=== PATIENT | female | born 1940 | race Caucasian/White ===

== ENCOUNTER 2020-12-03 14:08 | Inpatient (IN) | payer OTHER ==
[~2020-12-03] VITALS: Ht 154.9 cm; Wt 42.5 kg
[2020-12-03 15:09] LABS: Basophils # (auto) 0 10 ^3/uL (0-0.2); Basophils % (auto) 0.3 % (0.0-2.0); Eosinophils # (auto) 0 10 ^3/uL (0-0.8); Hematocrit 38.5 % (36.0-46.0); Hemoglobin 12.9 g/dL (12.2-16.2); Lymphocytes # (auto) 0.5 10 ^3/uL (0.4-5.4); Lymphocytes % (auto) 3.2 % (10.0-50.0); Mean Corpuscular Hemoglobin 31.1 pg (28.0-32.0); Mean Corpuscular Hgb Conc. 33.5 g/dL (32.0-36.0); Mean Corpuscular Volume 92.8 fL (80.0-100.0); Monocytes # (auto) 0.8 10 ^3/uL (0-1.3); Monocytes % (auto) 5.3 % (0.0-12.0); Neutrophils # (auto) 14.6 10 ^3/uL (1.6-8.6); Neutrophils % (auto) 91.2 % (37.0-80.0); Platelet Count (auto) 311 10^3/uL (140-450); Red Blood Cells 4.14 10^6/uL (4.0-5.20)
[2020-12-03 15:27] LABS: Albumin 3.2 g/dL (3.4-5.0); Anion Gap 11 (5-15); Blood Urea Nitrogen 35 mg/dL (7-18); Calcium 9.1 mg/dL (8.5-10.1); Carbon Dioxide 22 mmol/L (21-32); Chloride 104 mmol/L (98-107); Glucose 136 mg/dL (74-106); Magnesium 2.4 mg/dL (1.6-2.6); Potassium 3.8 mmol/L (3.5-5.1); Sodium 137 mmol/L (136-145)
[2020-12-03 15:33] LABS: Alanine Aminotransferase 15 U/L (13-56); Alkaline Phosphatase 61 U/L (45-117); Aspartate Aminotransferase 12 U/L (15-37); BUN/Creatinine Ratio 32.4; Bilirubin, Total 0.7 mg/dL (0.2-1.0); GFR African American 63 mL/min; GFR Non-African American 52 mL/min; Total Protein 7.5 g/dL (6.4-8.2)
[2020-12-03] MEDS ORDERED: PIPERACILLIN-TAZOB 3.375GM 100 ML IV ONE (15:45)
[2020-12-03 16:50] LABS: INR 1.17 (0.9-1.15); Partial Thromboplastin Time 31.9 sec (23.0-31.2)
[2020-12-03] MEDS ORDERED: NITROGLYCERIN 0.4 MG SL TAB SL PRN (17:15)
[2020-12-03] MEDS ORDERED: MORPHINE SULF INJ 2 MG/ML SYRINGE 1ML IV PRN (17:15)
[2020-12-03 17:19] LABS: Urine Bacteria NONE SEEN /hpf (None Seen); Urine Blood Negative /uL (Negative); Urine Mucus FEW (None Seen); Urine Specific Gravity 1.018 (1.001-1.035); Urine WBC 2 /hpf (0 - 5)
[2020-12-03] MEDS ORDERED: LACTATED RINGER'S 1,000 ML IV ONE (18:00)
[2020-12-03] MEDS ORDERED: ALBUTEROL SULF 2.5 MG/0.5ML(0.5%) NEB SOLN NEB PRN (19:30)
[2020-12-03] MEDS ORDERED: LACTULOSE 20Gm/30ML SOLN PO PRN ×2 (19:30)
[2020-12-03] MEDS ORDERED: levoFLOXacin 500MG 100 ML IV ONE (20:30)
[2020-12-03] MEDS: SODIUM CHLORIDE 0.9% 1,000 ML IV SCH (21:19)
[2020-12-03] MEDS: methylPREDNISolone SOD SUCC 40 MG/ML VL IV SCH (21:20)
[2020-12-03 22:00] VITALS: BP 121/77
[2020-12-03 22:02] VITALS: BP 144/76
[2020-12-03] MEDS ORDERED: ALEN70TA74 PO (22:48)
[2020-12-03] MEDS ORDERED: PRIM50TA27 PO (22:48)
[2020-12-03] MEDS ORDERED: QUET100T46 PO (22:48)
[2020-12-03] MEDS ORDERED: UMEC1AER IN (22:48)
[2020-12-03] MEDS ORDERED: AMIT100T2 PO (22:48)
[2020-12-03] MEDS ORDERED: HYDR-4902 PO (22:48)
[2020-12-04] VITALS (11 sets, daily range): BP systolic 111–154; BP diastolic 59–84
[2020-12-04] MEDS ORDERED: LITH150C6 PO (03:25)
[2020-12-04] MEDS: SODIUM CHLORIDE 0.9% 1,000 ML IV SCH ×2 (05:46→15:30)
[2020-12-04 06:28] LABS: Basophils # (auto) 0 10 ^3/uL (0-0.2); Eosinophils # (auto) 0 10 ^3/uL (0-0.8); Hematocrit 34.5 % (36.0-46.0); Hemoglobin 11.7 g/dL (12.2-16.2); Lymphocytes # (auto) 0.2 10 ^3/uL (0.4-5.4); Lymphocytes % (auto) 1.7 % (10.0-50.0); Mean Corpuscular Hgb Conc. 33.8 g/dL (32.0-36.0); Mean Corpuscular Volume 91.7 fL (80.0-100.0); Monocytes # (auto) 0.2 10 ^3/uL (0-1.3); Monocytes % (auto) 1.7 % (0.0-12.0); Neutrophils # (auto) 8.6 10 ^3/uL (1.6-8.6); Neutrophils % (auto) 96.6 % (37.0-80.0); Platelet Count (auto) 257 10^3/uL (140-450); Red Blood Cells 3.76 10^6/uL (4.0-5.20); Red Cell Distribution Width 13.8 % (11.8-14.3)
[2020-12-04 06:35] LABS: BUN/Creatinine Ratio 37.3; Calcium 8.6 mg/dL (8.5-10.1); Potassium 4.1 mmol/L (3.5-5.1)
[2020-12-04] MEDS: methylPREDNISolone SOD SUCC 40 MG/ML VL IV SCH ×2 (08:45→21:10)
[2020-12-04] MEDS: FAMOTIDINE 20 MG TAB PO SCH ×2 (10:00)
[2020-12-04] MEDS ORDERED: ENOXAPARIN SOD 40 MG/0.4 ML SYRINGE SC SCH (10:00)
[2020-12-04] MEDS: levoFLOXacin 250MG 100 ML IV SCH (10:09)
[2020-12-04] MEDS ORDERED: MORPHINE SULF INJ 2 MG/ML SYRINGE 1ML IV PRN (11:45)
[2020-12-04] MEDS ORDERED: HYDROcodone-ACET 5/325MG TAB PO PRN (11:45)
[2020-12-04] MEDS: MORPHINE SULF INJ 2 MG/ML SYRINGE 1ML IV PRN (12:25)
[2020-12-04] MEDS ORDERED: TRANEXAMIC ACID 20 ML ONE (13:22)
[2020-12-04] MEDS ORDERED: ROPIVACAINE 0.5% (5MG/ML) 20ML AMPULE IJ ONE (13:23)
[2020-12-04] MEDS ORDERED: VANCOMYCIN HCL 1000 MG VL ONE ×2 (13:24→14:00)
[2020-12-04] MEDS ORDERED: EPINEPHrine HCL 1 MG/1 ML AMP ONE (13:24)
[2020-12-04] MEDS ORDERED: BUPIVACAINE 0.5% P/F INJ 10 ML VIAL ONE (13:41)
[2020-12-04] MEDS ORDERED: GLYCOPYRROLATE 0.2 MG/ML 1ML VIAL ONE (13:42)
[2020-12-04] MEDS ORDERED: ONDANSETRON HCL 4 MG/2 ML VIAL ONE (13:42)
[2020-12-04] MEDS ORDERED: MIDAZOLAM HCL 1MG/1ML-2 ML VIAL ONE (13:42)
[2020-12-04] MEDS ORDERED: LIDOCAINE 2% (LOCAL ANESTH.) PF 5ml SDV ONE (13:42)
[2020-12-04] MEDS ORDERED: PROPOFOL 10 MG/ML 20 ML IV ONE (13:42)
[2020-12-04] MEDS ORDERED: fentaNYL CITRATE 100 MCG/2 ML VL ONE (13:42)
[2020-12-04] MEDS ORDERED: MORPHINE SULF(PF) 0.5MG/ML 10ML VIAL ONE (13:42)
[2020-12-04] MEDS ORDERED: ceFAZolin 1GM/50ML 50 ML IV ONE (14:00)
[2020-12-04] MEDS ORDERED: NALOXONE HCL 0.4 MG/ML VIAL IV PRN (16:15)
[2020-12-04] MEDS ORDERED: DexAMETHasone SOD PHOS 10MG/1ML VIAL INJ IV PRN (16:15)
[2020-12-04] MEDS ORDERED: LACTATED RINGER'S 1,000 ML IV SCH (16:15)
[2020-12-04] MEDS ORDERED: ONDANSETRON HCL 4 MG/2 ML VIAL IV PRN ×2 (16:15)
[2020-12-04] MEDS ORDERED: diphenhdrAMINE HCL 50 MG/1 ML VL IV PRN (16:15)
[2020-12-04] MEDS ORDERED: NALBUPHINE HCL 10 MG/1ml INJECTION SUBCUT ONE (16:15)
[2020-12-04] MEDS ORDERED: KETOROLAC TROMETH 15 mg/ml 1ML VL IV SCH (18:00)
[2020-12-04] MEDS: KETOROLAC TROMETH 30 MG/ML 1ML VIAL IV SCH (21:10)
[2020-12-04] MEDS: ceFAZolin 1GM/50ML 50 ML IV SCH (22:32)
[2020-12-05] VITALS (20 sets, daily range): BP systolic 102–145; BP diastolic 54–97
[2020-12-05] MEDS: KETOROLAC TROMETH 30 MG/ML 1ML VIAL IV SCH ×4 (03:32→21:38)
[2020-12-05 05:17] LABS: Basophils # (auto) 0 10 ^3/uL (0-0.2); Eosinophils # (auto) 0 10 ^3/uL (0-0.8); Hematocrit 31.6 % (36.0-46.0); Hemoglobin 10.6 g/dL (12.2-16.2); Lymphocytes # (auto) 0.2 10 ^3/uL (0.4-5.4); Lymphocytes % (auto) 2.3 % (10.0-50.0); Mean Corpuscular Hemoglobin 31.1 pg (28.0-32.0); Mean Corpuscular Hgb Conc. 33.6 g/dL (32.0-36.0); Mean Corpuscular Volume 92.8 fL (80.0-100.0); Monocytes # (auto) 0.4 10 ^3/uL (0-1.3); Monocytes % (auto) 3.9 % (0.0-12.0); Neutrophils # (auto) 9.1 10 ^3/uL (1.6-8.6); Neutrophils % (auto) 93.8 % (37.0-80.0); Platelet Count (auto) 261 10^3/uL (140-450); White Blood Cell 9.7 10^3/uL (4.4-10.8)
[2020-12-05 05:32] LABS: Potassium 4.8 mmol/L (3.5-5.1)
[2020-12-05 05:36] LABS: BUN/Creatinine Ratio 42.2
[2020-12-05] MEDS: ceFAZolin 1GM/50ML 50 ML IV SCH (05:53)
[2020-12-05] MEDS: levoFLOXacin 250MG 100 ML IV SCH (09:03)
[2020-12-05] MEDS: methylPREDNISolone SOD SUCC 40 MG/ML VL IV SCH ×2 (09:03→21:37)
[2020-12-05] MEDS: FAMOTIDINE 20 MG TAB PO SCH (09:04)
[2020-12-05] MEDS: RIVAROXABAN 10 MG TAB PO SCH (09:04)
[2020-12-05] MEDS ORDERED: ceFAZolin 1GM/50ML 50 ML IV SCH (14:00)
[2020-12-05] MEDS ORDERED: IPRATROPIUM BROM 0.5 MG/2.5ML INH SOL NEB PRN (15:45)
[2020-12-05] MEDS ORDERED: ALBUTEROL SULF 2.5 MG/0.5ML(0.5%) NEB SOLN NEB PRN (15:45)
[2020-12-05] MEDS ORDERED: KETOROLAC TROMETH 30 MG/ML 1ML VIAL IV SCH (18:49)
[2020-12-05] MEDS ORDERED: VANCOMYCIN PER PHARMACY 0 MG IV SCH (20:45)
[2020-12-05] MEDS ORDERED: VANCOMYCIN 1GM/250ML 250 ML IV ONE (21:00)
[2020-12-06] VITALS (9 sets, daily range): BP systolic 121–181; BP diastolic 67–95
[2020-12-06] MEDS: KETOROLAC TROMETH 30 MG/ML 1ML VIAL IV SCH ×4 (03:27→21:55)
[2020-12-06] MEDS: hydrALAZINE HCL 20 MG/ML VL IV PRN ×3 (05:44→21:55)
[2020-12-06] MEDS: levoFLOXacin 250MG 100 ML IV SCH (09:28)
[2020-12-06] MEDS: FAMOTIDINE 20 MG TAB PO SCH (09:28)
[2020-12-06] MEDS: methylPREDNISolone SOD SUCC 40 MG/ML VL IV SCH ×2 (09:28→20:52)
[2020-12-06] MEDS: RIVAROXABAN 10 MG TAB PO SCH (09:28)
[2020-12-06] MEDS ORDERED: POLYETHYLENE GLYCOL 17 GM PWDR PO ONE (13:00)
[2020-12-06] MEDS: MORPHINE SULF INJ 2 MG/ML SYRINGE 1ML IV PRN (13:17)
[2020-12-06] MEDS: VANCOMYCIN 750mg/250ml 250 ML IV SCH (13:38)
[2020-12-06] MEDS ORDERED: LACTULOSE 20Gm/30ML SOLN PO ONE (17:15)
[2020-12-06] MEDS: METOPROLOL TARTRATE 25 MG TAB PO SCH ×2 (17:44→21:55)
[2020-12-06] MEDS ORDERED: BISACODYL 10 MG RECT SUPP PR ONE (20:45)
[2020-12-06] MEDS: DOCUSATE SOD 100 MG CAP PO SCH (21:55)
[2020-12-07] MEDS: VANCOMYCIN 750mg/250ml 250 ML IV SCH ×2 (00:16→12:06)
[2020-12-07] MEDS ORDERED: SODIUM CHLORIDE 0.9% 1,000 ML IV ONE (01:15)
[2020-12-07 03:34] VITALS: BP 182/90
[2020-12-07] MEDS: KETOROLAC TROMETH 30 MG/ML 1ML VIAL IV SCH ×3 (03:38→16:33)
[2020-12-07 04:40] VITALS: BP 131/77
[2020-12-07 05:32] LABS: Basophils # (auto) 0 10 ^3/uL (0-0.2); Eosinophils # (auto) 0 10 ^3/uL (0-0.8); Hematocrit 35.7 % (36.0-46.0); Hemoglobin 11.8 g/dL (12.2-16.2); Lymphocytes # (auto) 0.2 10 ^3/uL (0.4-5.4); Lymphocytes % (auto) 1.9 % (10.0-50.0); Mean Corpuscular Volume 93.9 fL (80.0-100.0); Monocytes # (auto) 0.6 10 ^3/uL (0-1.3); Neutrophils # (auto) 7.8 10 ^3/uL (1.6-8.6); Neutrophils % (auto) 91.1 % (37.0-80.0); Platelet Count (auto) 322 10^3/uL (140-450); Red Cell Distribution Width 14.2 % (11.8-14.3); White Blood Cell 8.5 10^3/uL (4.4-10.8)
[2020-12-07 05:55] LABS: BUN/Creatinine Ratio 58.7; Potassium 4.9 mmol/L (3.5-5.1)
[2020-12-07 07:43] VITALS: BP 151/73
[2020-12-07] MEDS: methylPREDNISolone SOD SUCC 40 MG/ML VL IV SCH (08:24)
[2020-12-07 08:30] VITALS: BP 151/73
[2020-12-07] MEDS: RIVAROXABAN 10 MG TAB PO SCH (09:18)
[2020-12-07] MEDS: FAMOTIDINE 20 MG TAB PO SCH (09:18)
[2020-12-07] MEDS: DOCUSATE SOD 100 MG CAP PO SCH (09:18)
[2020-12-07] MEDS: levoFLOXacin 250MG 100 ML IV SCH (09:19)
[2020-12-07] MEDS: METOPROLOL TARTRATE 25 MG TAB PO SCH (09:33)
[2020-12-07 12:30] VITALS: BP 129/63
[2020-12-07 17:00] VITALS: BP 103/69
== END 2020-12-07 17:50 | DRG 522 ==
LOC: ER 14:08 → EDBD 14:08 → TELE 17:04 → TELE-WESTW 19:55
PROVIDERS: ADMIT Internal Medicine; ATTEND Internal Medicine
PROC: 0SRS019 Replacement of Left Hip Joint, Femoral Surface with Metal Synthetic Substitute, Cemented, Open Approach (ICD-10-PCS; principal; 2020-12-04 14:02)
DX: S72.012A Unspecified intracapsular fracture of left femur, initial encounter for closed fracture (principal); J44.1 Chronic obstructive pulmonary disease with (acute) exacerbation; D62 Acute posthemorrhagic anemia; D72.829 Elevated white blood cell count, unspecified; R73.9 Hyperglycemia, unspecified; E86.9 Volume depletion, unspecified; G25.81 Restless legs syndrome; I10 Essential (primary) hypertension; F17.200 Nicotine dependence, unspecified, uncomplicated; F31.9 Bipolar disorder, unspecified; M81.0 Age-related osteoporosis without current pathological fracture; Z80.3 Family history of malignant neoplasm of breast; Z80.6 Family history of leukemia; Z82.49 Family history of ischemic heart disease and other diseases of the circulatory system; Z85.819 Personal history of malignant neoplasm of unspecified site of lip, oral cavity, and pharynx; Z86.73 Personal history of transient ischemic attack (TIA), and cerebral infarction without residual deficits; W18.30XA Fall on same level, unspecified, initial encounter; Z88.7 Allergy status to serum and vaccine; Z86.16 Personal history of COVID-19; Z87.19 Personal history of other diseases of the digestive system; B95.7 Other staphylococcus as the cause of diseases classified elsewhere
CPT/HCPCS: 36415; 70450; 71045; 72170; 72192; 80048; 80053; 80202; 81001; 83036; 83605; 83735; 84484; 85025; 85610; 85730; 86850; 86900; 86901; 87040; 87077; 87186; 87426; 93005; 93306; 96361; 96365; 97110; 97116; 97530; A4565; G0378; J0171; J0690; J1885; J1956; J2001; J2250; J2405; J2543; J2704; J3490